=== PATIENT | male | born 1995 | race Two or more races ===

== ENCOUNTER 2021-10-14 01:00 | Emergency (ER) | payer MEDICAID ==
[~2021-10-14] VITALS: Ht 177.8 cm; Wt 68.0 kg
[2021-10-14] MEDS ORDERED: LORazepam 2MG/ML-1ML VIAL ONE (02:40)
[2021-10-14] MEDS ORDERED: OLANZapine 5 MG TAB PO ONE (03:00)
[2021-10-14] MEDS ORDERED: LORazepam 2MG/ML-1ML VIAL IV ONE (03:00)
[2021-10-14 03:21] LABS: Basophils # (auto) 0 10 ^3/uL (0-0.2); Basophils % (auto) 0.3 % (0.0-2.0); Eosinophils # (auto) 0.1 10 ^3/uL (0-0.8); Eosinophils % (auto) 0.5 % (0.0-7.0); Hematocrit 42.9 % (41.0-53.0); Hemoglobin 14.5 g/dL (13.5-17.5); Lymphocytes # (auto) 1.7 10 ^3/uL (0.4-5.4); Lymphocytes % (auto) 11.5 % (10.0-50.0); Mean Corpuscular Hemoglobin 28.9 pg (28.0-32.0); Mean Corpuscular Hgb Conc. 33.7 g/dL (32.0-36.0); Mean Corpuscular Volume 85.8 fL (80.0-100.0); Monocytes # (auto) 0.7 10 ^3/uL (0-1.3); Monocytes % (auto) 4.5 % (0.0-12.0); Neutrophils # (auto) 12.3 10 ^3/uL (1.6-8.6); Neutrophils % (auto) 83.2 % (37.0-80.0); Red Cell Distribution Width 13.1 % (11.8-14.3); White Blood Cell 14.8 10^3/uL (4.4-10.8)
[2021-10-14 03:24] LABS: Urine Bacteria NONE SEEN /hpf (None Seen); Urine Blood Negative /uL (Negative); Urine Specific Gravity 1.004 (1.001-1.035); Urine WBC 1 /hpf (0 - 3)
[2021-10-14 03:33] LABS: Albumin 4.3 g/dL (3.4-5.0); Calcium 8.7 mg/dL (8.5-10.1); Potassium 3.7 mmol/L (3.5-5.1)
[2021-10-14 03:35] LABS: Amphetamine Screen, Urine NEGATIVE (NEGATIVE); Barbiturate Scree,Urine NEGATIVE (NEGATIVE); Benzodiazephine Screen, Urine NEGATIVE (NEGATIVE); Cannabinoid Screen, Urine POSITIVE (NEGATIVE); Cocaine Screen, Urine NEGATIVE (NEGATIVE); Opiate Scree,Urine NEGATIVE (NEGATIVE); Phencyclidine Screen, Urine NEGATIVE (NEGATIVE)
[2021-10-14 03:36] LABS: BUN/Creatinine Ratio 7.1; Bilirubin, Total 0.6 mg/dL (0.2-1.0); Total Protein 7.9 g/dL (6.4-8.2)
[2021-10-14] MEDS ORDERED: SODIUM CHLORIDE 0.9% 1,000 ML IVB ONE (08:15)
[2021-10-14 13:05] VITALS: BP 104/54
== END 2021-10-14 15:08 | disposition home or self-care (01) ==
LOC: ER 01:00 → EDBD 01:00 → ER 15:03
DX: F10.129 Alcohol abuse with intoxication, unspecified (principal); R44.3 Hallucinations, unspecified; R41.82 Altered mental status, unspecified; Y90.8 Blood alcohol level of 240 mg/100 ml or more
CPT/HCPCS: 36415; 80053; 80307; 80320; 81001; 85025; 96361; 96374; 99285; J2060; J7030